=== PATIENT | female | born 1970 | race Caucasian/White ===

== ENCOUNTER → 2016-06-30 | Outpatient (CLI) | payer OTHER ==
--- NOTE | 2016-06-30 15:51 | DIAGNOSTIC IMAGING REPORT ---
CHEST 2 VIEWS ROUTINE HISTORY: HX OF BREAST CANCER, COUGH COMPARISON: None. FINDINGS: The lungs are hyperexpanded. There is mild diffuse interstitial thickening. Surgical clips within the right axilla. No focal lung consolidations to suggest pneumonia. No evidence for pulmonary edema. The heart is normal in size. Right basilar linear density favor subsegmental atelectasis. No pneumothorax. No pleural effusions. IMPRESSION: 1. No focal lung consolidations to suggest pneumonia. 2. Hyperexpanded lungs. 3. Mild diffuse interstitial thickening which may be chronic. Electronically signed by: Santana Brody M.D. 06/30/2016 3:50 PM Dictated Date/Time: 06/30/2016 3:48 PM
== END | disposition home or self-care (01) ==
LOC: C.RAD 15:18
PROVIDERS: ATTEND Internal Medicine Hematology & Oncology
DX: Z85.3 Personal history of malignant neoplasm of breast (principal); J98.4 Other disorders of lung

== ENCOUNTER → 2017-09-13 | Outpatient (CLI) | payer OTHER ==
[2017-09-13 16:01] LABS: BASO % 0.5 %; BASO ABS # 0.03 K/uL (0-0.2); EOS % 0.9 %; EOS ABS # 0.06 K/uL (0-0.5); HEMATOCRIT 44.9 % (37-47); HEMOGLOBIN 15.9 g/dL (12.0-16.0); IG# 0.01 K/uL (0.00-0.02); LYMPH % 31.6 %; MEAN CELL VOLUME 85.2 fL (80-100); MEAN CORPUSCULAR HEMOGLOBIN 30.2 pg (25-34); MONO % 7.1 %; MONO ABS # 0.47 K/uL (0.11-0.59); NEUT % 59.7 %; NEUT ABS # 3.97 K/uL (1.4-6.5); PLATELET COUNT 302 K/uL (130-400); RED CELL DISTRIBUTION WIDTH CV 14.1 % (11.5-14.5); RED CELL DISTRIBUTION WIDTH SD 43.9 fL (36.4-46.3); WHITE BLOOD COUNT 6.64 K/uL (4.8-10.8)
[2017-09-13 16:05] LABS: MEAN CORPUSCULAR HGB CONC 35.4 g/dl (32-36)
[2017-09-13 16:15] LABS: ALBUMIN 3.3 gm/dl (3.4-5.0); ALKALINE PHOSPHATASE 79 U/L (45-117); ALT/SGPT 16 U/L (12-78); AST/SGOT 16 U/L (15-37); BLOOD UREA NITROGEN 5 mg/dl (7-18); CALCIUM 8.6 mg/dl (8.5-10.1); CARBON DIOXIDE 27 mmol/L (21-32); CREATININE 0.65 mg/dl (0.60-1.20); GLUCOSE 80 mg/dl (70-99); POTASSIUM 3.2 mmol/L (3.5-5.1); SODIUM 138 mmol/L (136-145); TOTAL PROTEIN 7.2 gm/dl (6.4-8.2)
== END | disposition home or self-care (01) ==
LOC: C.LAB 14:08
PROVIDERS: ATTEND Internal Medicine Hematology & Oncology
DX: Z85.3 Personal history of malignant neoplasm of breast (principal)

== ENCOUNTER 2023-07-06 12:40 | Observation (INO) ==
[2023-07-06 13:31] LABS: Basophils # (auto) 0.04 K/uL (0.00-0.20); Basophils % (auto) 0.4 %; Eosinophils # (auto) 0.09 K/uL (0.00-0.50); Hemoglobin 9.6 g/dl (12.0-16.0); Immature Granulocytes # (auto) 0.04 K/uL (0.01-0.20); Immature Granulocytes % (auto) 0.4 %; Lymphocytes # (auto) 1.06 K/uL (1.20-3.40); Lymphocytes % (auto) 11.6 %; Mean Corpuscular Hemoglobin 24.7 pg (25.0-34.0); Mean Corpuscular Volume 79.9 fL (80.0-100.0); Mean Platelet Volume 9.1 fL (9.4-12.4); Monocytes # (auto) 1.06 K/uL (0.11-0.59); Monocytes % (auto) 11.6 %; Neutrophils # (auto) 6.88 K/uL (1.40-6.50); Platelet Count 372 K/uL (130-400); RDW Standard Deviation 61.9 fL (36.4-46.3); Red Blood Count 3.88 M/uL (4.20-5.40); White Blood Count 9.17 K/ul (4.8-10.8)
[2023-07-06 13:53] LABS: Albumin Globulin Ratio 0.8 (0.9-2); Albumin Level 2.6 gm/dl (3.4-5.0); BUN Creatinine Ratio 14.3 (10-20); Bilirubin,Total 0.2 mg/dl (0.2-1.0); Calcium 8.8 mg/dl (8.6-10.3); Creatinine Clr Calc Pharmacy 82.9 ml/min; Est GFR (African American) 134.7 ml/min; Est GFR (Non-African American) 116.2 ml/min; Globulin 3.1 gm/dl (2.5-4.0); Potassium 2.9 mmol/L (3.5-5.1); Total Protein 5.7 gm/dl (6.0-8.3)
[2023-07-06 13:56] LABS: Ovalocytes 1+; Polychromasia 2+
[2023-07-06 14:04] LABS: INR 2.5 (0.9-1.1); Prothrombin Time 25.5 Seconds (9.0-12.0)
[2023-07-06 14:11] LABS: ANTI-Xa, LMWH(Low Molecular Wt > 1.50 IU/ML (< 0.10)
--- NOTE | 2023-07-06 14:17 | Emergency Department Note ---
Impression & Plan Recurrent deep vein thrombosis (DVT), Metastatic breast cancer, Hypokalemia, Hypomagnesemia ED Provider Note NAME: KAELA SAMSON AGE: 52 SEX: F : 1970 ARRIVES VIA: Walk-In INFORMANT: Patient ED PROVIDER(S): Fausto Ramos MD CHIEF COMPLAINT: Left arm pain, swelling, referred. PLAN: Disposition: Admit MEDICAL DECISION MAKING: The patient is a pleasant 52-year-old woman with a past medical history of metastatic breast cancer who presents to the emergency department via walk-in for evaluation of left arm pain and swelling which has been progressing over the past 4 days where she was seen recently at the coagulation clinic and was referred to emergency department today to have an ultrasound of her left extremity as she was already scheduled to have an outpatient [facility] with [facility]. Patient ports she does have some chest pain but this is not uncommon for her given her extensive metastatic disease. She reports some mild intermittent shortness of breath which is not significantly changed. She reports she does have abdominal pain intermittently which has been chronic since her chemo. She reports that 2 weeks ago her chemotherapy was put on hold due to lab abnormalities and is unsure of plan to restart. Patient reports she has been compliant with her Lovenox however there was concern that her levels were not therapeutic and so anti-Xa levels were being followed. Appreciate discussion regarding the patient's referral to emergency department with Dr. Wolfe. Of note, the patient did arrive to emergency department during time of high volume, acuity and prolonged emergency department waiting times. Critical pathways initiated from triage. On arrival to emergency department to triage the patient is afebrile with heart rate in the 110s and O2 saturation 89% on room air which patient reports is not uncommon for her. On my examination the patient appears clinically dry. She does have moderate swelling of the left upper arm. Distal PMS intact. She is a large left-sided chest wall cancerous mass. EKG without overt acute ischemia. CXR negative for acute cardiopulmonary process per my personal preliminary review/interpretation. WBC within normal limits. H/H similar to prior. Platelets within normal limits. Chemistry without metabolic acidosis. Potassium 2.9 with repletion initiated. Magnesium 1.6 with repletion initiated. HS troponin 10.5, within normal limits. Of note, initial anti-Xa and INR >1.5 and 2.5, respectively obtained from the patient's port likely without wasting. Appreciate recommendations from Dr. Wolfe to redraw these after wasting. Subsequent, INR 1.0 within normal limits and anti-Xa was not detectable. However the patient maintained that she was taking her Lovenox as prescribed. Left upper extremity ultrasound was obtained and demonstrates both superficial and deep venous thrombi of the left upper extremity. Findings include partially occlusive thrombus in the left subclavian, axilla, brachial and basilic veins with trace flow noted within the brachialis. CT of the chest was performed and was negative for PE. Extensive metastatic disease as described and is unchanged from CT on 06/23. Large chest wall masses with permeative destruction of the sternum and left anterior ribs and mediastinal extension is noted. Additionally seen there is bibasilar mucous plugging with left lower lobe collapse. Given progression of left upper extremity DVT IV/unfractionated heparin initiated per discussion with Dr. Wolfe. Findings reviewed with the patient and daughter at the bedside. They did agree with plan for admission for further management. Case was discussed with [facility] hospitalist who will evaluate the patient for admission. This patient was managed with the assistance of resident, Dr. Adams. I discussed the case with the resident, examined the patient, and confirm the findings and plan as documented in this note. Triage Nursing notes reviewed and agree them. Prior/external medical records reviewed Vital Signs: reviewed Differential diagnosis: DVT, musculoskeletal, infection, joint effusion, trauma, lymphedema, idiopathic, CHF, as well as other pathologies. ER treatment provided: See below. Diagnostics interpreted by me: ECG: Normal sinus rhythm, 91 bpm, no ectopy, nonspecific T wave abnormality, no overt ST elevation or depression, QTc 457, QRS 94. Cardiac Monitoring: An order for continuous cardiac monitoring was placed and demonstrated Normal sinus rhythm, 91 bpm, no ectopy. Laboratory studies: See below Imaging studies: See below Consultation(s): [facility] hospitalist HPI: The patient is a pleasant 52-year-old woman with a past medical history of metastatic breast cancer who presents to the emergency department via walk-in for evaluation of left arm pain and swelling which has been progressing over the past 4 days where she was seen recently at the coagulation clinic and was referred to emergency department today to have an ultrasound of her left extremity as she was already scheduled to have an outpatient [facility] with onc[facility]. Patient ports she does have some chest pain but this is not uncommon for her given her extensive metastatic disease. She reports some mild intermittent shortness of breath which is not significantly changed. She reports she does have abdominal pain intermittently which has been chronic since her chemo. She reports that 2 weeks ago her chemotherapy was put on hold due to lab abnormalities and is unsure of plan to restart. Patient reports she has been compliant with her Lovenox however there was concern that her levels were not therapeutic and so anti-Xa levels were being followed. Appreciate discussion regarding the patient's referral to emergency department with Dr. Wolfe. ROS: See above HPI for pertinent positives & negatives. A total of 10 systems reviewed and were otherwise negative. VITALS:See Below PHYSICAL EXAMINATION: GENERAL: Awake, alert, in no distress HENT: Normocephalic, atraumatic. Oropharynx with dry mucous membranes and otherwise unremarkable. EYES: Normal conjunctiva. Sclera non-icteric. NECK: Supple. No nuchal rigidity. FROM. No JVD. RESPIRATORY: Diminished breath sounds at left lung rahman and otherwise clear. CARDIAC: Tachycardic rate, normal rhythm. Extremities warm and well perfused. Pulses equal. ABDOMEN: Soft, non-distended. No tenderness to palpation. No rebound or guarding. No masses. MUSCULOSKELETAL: Moderate swelling of the left upper arm. Distal PMS intact. She is a large left-sided chest wall cancerous mass. LOWER EXTREMITIES: Calves are equal size bilaterally and non-tender. No edema. No discoloration. NEURO: Normal sensorium. No sensory or motor deficits noted. SKIN: No rash or jaundice noted. ED COURSE: Critical Care: I have personally spent greater than 35 minutes of critical care time in the direct management of this patient. This includes bedside care, interpretation of diagnostic studies, and testing, discussion with consultants, patient, and family members, and other required patient management activities. This 35 minutes is in excess of all separately billable procedures. Fausto Ramos MD Past Med/Surg History Medical History Recurrent deep vein thrombosis (DVT) Anticoagulated on heparin History of blood clots 10/2021- B/L lower extremities- surgical procedure to remove and started on blood thinners COPD (chronic obstructive pulmonary disease) Arthritis Malignant neoplasm of breast metastatic to bone last chemo 11/10/22- Dr Emanuel; receiving neupogen injections Anxiety disorder Surgical History Port-A-Cath in place (11/16/22) Access Port Placement Right Subclavian(Right) - Johnathan Kwan MD, FACS History of removal of Port-a-Cath x 2 History of salpingo-oophorectomy H/O mastectomy 2012 - Right History of lumpectomy of right breast 2010 History of fasciotomy bilateral four compartment 10/2021 Family History Mother Colon cancer, Onset Age: 67 Father Heart disease Myocardial infarction, Onset Age: 62 Stroke Brother Heart disease Myocardial infarction, Onset Age: 46 Brother Heart disease Myocardial infarction, Onset Age: 65 Stroke Grandmother (Paternal) Heart disease Myocardial infarction, Onset Age: 79 Grandfather (Paternal) Heart disease Myocardial infarction, Onset Age: 45 Uncle Colon cancer Social History Smoking Status: Current every day smoker Tobacco Type: Cigarettes Age Started Using Tobacco: 13; packs per day: 1; Cigarettes Per Day: > 20 per day; Second Hand Exposure: Yes (in the past); Do You Dip or Chew Tobacco: No; Hx Alcohol Use: No Hx Substance Use: Yes Prescribed Medications: Marijuana Preferred Language: Gibraltarian Communication Ability: Effective Cooler Operator Required: No Beliefs That Will Affect Care: None marital status: Current Living Situation: Family Current Living Situation Comment: Daughter, son, and daughter in law current occupational status: previously employed and disabled 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 How many Children do You have: 4 Other Information That Helps Us Care for You: No Feels Safe at Home: Yes Safety Concerns: Feels Safe At This Time Childhood Exposure to Second-Hand Smoke: Yes Diet: regular during the past year weight has: decreased > 10 lbs Assistive Devices: Glasses and Wheelchair Assistive Devices Comment: wheelchair as needed Allergies Allergies Allergy/AdvReac Type Severity Reaction Status Date / Time Penicillins Allergy Mild Rash Verified 07/06/23 14:21 Home Meds Home Medications Medication Instructions Recorded Confirmed alprazolam 0.5 mg tablet (Xanax) 0.5 mg PO BID PRN anxiety 02/12/22 07/06/23 ondansetron HCl 8 mg tablet 8 mg PO Q8H 02/12/22 07/06/23 tiotropium 2.5 mcg-olodaterol 2.5 2 puff inhalation BID 02/12/22 07/06/23 mcg/actuation mist for inhalation (Stiolto Respimat) Medical Marijuana 1 dose PO UD PRN PAIN/ANXIETY 11/11/22 07/06/23 enoxaparin 60 mg/0.6 mL 60 mg subcut Q12 07/06/23 07/06/23 subcutaneous syringe morphine 15 mg tablet,extended 15 mg PO Q12H 07/06/23 07/06/23 release morphine 30 mg tablet,extended 30 mg PO Q12H 07/06/23 07/06/23 release Previous Rx's Medication Instructions Recorded fluticasone propionate 50 1 spray intranasal DAILY rhinitis 01/14/23 mcg/actuation nasal 1 month #1 g spray,suspension oxycodone-acetaminophen 10 mg-325 1 tab PO QID PRN pain 1 month #120 06/25/23 mg tablet (Percocet) tabs Results & Data (ED) Vital Signs Vital Signs - 24 hr 07/06/23 12:45 07/06/23 15:46 07/06/23 15:50 Temperature 36.6 C Temperature Source Temporal Artery Scan Pulse Rate 118 H 92 H Pulse Rate [Apical] 88 Respiratory Rate 16 15 18 Respiratory Effort / Characteristics Non-Labored Spontaneous Respiratory Depth Normal Respiratory Pattern Blood Pressure 118/79 Blood Pressure [Left Arm] Blood Pressure Mean 92 Blood Pressure Mean [Left Arm] Pulse Oximetry 89 L 91 88 L Oxygen Delivery Method Room Air Room Air Room Air Oxygen Flow Rate Sepsis Recent Fever Within 48 Hours No Sepsis New/Unexplained Change in Mental Status No Sepsis Action Taken by Nursing No Action Required 07/06/23 16:01 07/06/23 17:00 Temperature Temperature Source Pulse Rate 91 H Pulse Rate [Apical] 89 Respiratory Rate 18 20 Respiratory Effort / Characteristics Non-Labored Respiratory Depth Normal Respiratory Pattern Regular Blood Pressure Blood Pressure [Left Arm] 91/60 L Blood Pressure Mean Blood Pressure Mean [Left Arm] 70 Pulse Oximetry 94 96 Oxygen Delivery Method Nasal Cannula Nasal Cannula Oxygen Flow Rate 2 2 Sepsis Recent Fever Within 48 Hours Sepsis New/Unexplained Change in Mental Status Sepsis Action Taken by Nursing Laboratory Data Attestation: I reviewed the patient's lab results. 07/06/23 13:12 07/06/23 13:12 Lab Results 07/06/23 07/06/23 07/06/23 Range/Units 13:12 13:40 15:45 WBC 9.17 (4.8-10.8) K/ul RBC 3.88 L (4.20-5.40) M/uL Hgb 9.6 L (12.0-16.0) g/dl Hct 31.0 L (37.0-47.0) % MCV 79.9 L (80.0-100.0) fL MCH 24.7 L (25.0-34.0) pg MCHC 31.0 L (32.0-36.0) g/dL RDW Std Deviation 61.9 H (36.4-46.3) fL RDW Coeff of Santa 22.0 H (11.5-14.5) % Plt Count 372 (130-400) K/uL MPV 9.1 L (9.4-12.4) fL Immature Gran % (Auto) 0.4 % Neut % (Auto) 75.0 % Lymph % (Auto) 11.6 % Coal % (Auto) 11.6 % Eos % (Auto) 1.0 % Baso % (Auto) 0.4 % Neut # (Auto) 6.88 H (1.40-6.50) K/uL Lymph # (Auto) 1.06 L (1.20-3.40) K/uL Coal # (Auto) 1.06 H (0.11-0.59) K/uL Eos # (Auto) 0.09 (0.00-0.50) K/uL Baso # (Auto) 0.04 (0.00-0.20) K/uL Immature Gran # (Auto) 0.04 (0.01-0.20) K/uL Polychromasia 2+ Ovalocytes 1+ PT 25.5 H 11.2 (9.0-12.0) Seconds INR 2.5 H 1.0 (0.9-1.1) APTT 22 (21-31) Seconds PTT Ratio 0.8 Heparin Anti-Xa, LM Wt > 1.50 Cancelled < 0.10 (< 0.10) IU/ML Sodium 137 (136-145) mmol/L Potassium 2.9 L (3.5-5.1) mmol/L Chloride 101 (98-107) mmol/L Carbon Dioxide 30 (21-32) mmol/L Anion Gap 6 (3-11) BUN 6 (6-23) mg/dl Creatinine 0.42 L (0.6-1.2) mg/dl Est Cr Clr Drug Dosing 82.9 ml/min Est GFR ( Amer) 134.7 ml/min Est GFR (Non-Af Amer) 116.2 ml/min BUN/Creatinine Ratio 14.3 (10-20) Glucose 105 H (70-99(Fasting)) mg/dl Calcium 8.8 (8.6-10.3) mg/dl Magnesium 1.6 L (1.7-2.4) mg/dl Total Bilirubin 0.2 (0.2-1.0) mg/dl AST 15 (13-39) U/L ALT 9 (7-52) U/L Alkaline Phosphatase 94 (34-104) U/L Troponin I High Sens (0-14) pg/ml Total Protein 5.7 L (6.0-8.3) gm/dl Albumin 2.6 L (3.4-5.0) gm/dl Globulin 3.1 (2.5-4.0) gm/dl Albumin/Globulin Ratio 0.8 L (0.9-2) /04/18 Range/Units 15:47 WBC (4.8-10.8) K/ul RBC (4.20-5.40) M/uL Hgb (12.0-16.0) g/dl Hct (37.0-47.0) % MCV (80.0-100.0) fL MCH (25.0-34.0) pg MCHC (32.0-36.0) g/dL RDW Std Deviation (36.4-46.3) fL RDW Coeff of Santa (11.5-14.5) % Plt Count (130-400) K/uL MPV (9.4-12.4) fL Immature Gran % (Auto) % Neut % (Auto) % Lymph % (Auto) % Coal % (Auto) % Eos % (Auto) % Baso % (Auto) % Neut # (Auto) (1.40-6.50) K/uL Lymph # (Auto) (1.20-3.40) K/uL Coal # (Auto) (0.11-0.59) K/uL Eos # (Auto) (0.00-0.50) K/uL Baso # (Auto) (0.00-0.20) K/uL Immature Gran # (Auto) (0.01-0.20) K/uL Polychromasia Ovalocytes PT (9.0-12.0) Seconds INR (0.9-1.1) APTT (21-31) Seconds PTT Ratio Heparin Anti-Xa, LM Wt (< 0.10) IU/ML Sodium (136-145) mmol/L Potassium (3.5-5.1) mmol/L Chloride (98-107) mmol/L Carbon Dioxide (21-32) mmol/L Anion Gap (3-11) BUN (6-23) mg/dl Creatinine (0.6-1.2) mg/dl Est Cr Clr Drug Dosing ml/min Est GFR ( Amer) ml/min Est GFR (Non-Af Amer) ml/min BUN/Creatinine Ratio (10-20) Glucose (70-99(Fasting)) mg/dl Calcium (8.6-10.3) mg/dl Magnesium (1.7-2.4) mg/dl Total Bilirubin (0.2-1.0) mg/dl AST (13-39) U/L ALT (7-52) U/L Alkaline Phosphatase (34-104) U/L Troponin I High Sens 10.5 (0-14) pg/ml Total Protein (6.0-8.3) gm/dl Albumin (3.4-5.0) gm/dl Globulin (2.5-4.0) gm/dl Albumin/Globulin Ratio (0.9-2) Administered Medications Sodium Chloride (Nss) 500 mls @ 80 mls/hr IV .Q6H15M [facility] Stop: 08/05/23 15:44 Last Admin: 07/06/23 21:50 Dose: 80 mls/hr Documented By: Infusion: 07/06/23 21:50 Dose: Infused Documented By: Admin: 07/06/23 15:43 Dose: 80 mls/hr Documented By: BRANDON Heparin Sodium/Dextrose (Heparin Sodium/Dextrose) 25,000 units in 500 mls @ 13 mls/hr IV .Q24H TATUM; Protocol Stop: 08/05/23 17:14 Last Titration: 07/07/23 01:21 Dose: 700 units/hr, 14 mls/hr Documented By: MARIANGEL Co-signed By: DASHAWN Admin: 07/06/23 17:34 Dose: 600 units/hr, 12 mls/hr Documented By: ANGELA Co-signed By: PADMNII Morphine Sulfate (Morphine Sulfate Cr 15 Mg Tabcr) 45 mg PO Q12H [facility] Stop: 07/20/23 20:59 Last Admin: 07/06/23 21:14 Dose: 45 mg Documented By: PADMINI Ondansetron HCl (Ondansetron 8mg Od Tab) 8 mg PO Q8H [facility] Stop: 08/05/23 21:59 Last Admin: 07/06/23 21:14 Dose: 8 mg Documented By: PADMINI Discontinued Medications Heparin Sodium (Porcine) (Heparin Sod (Porcine) 1000 Unit/Ml) 1 units IV NOW ONE Stop: 07/06/23 17:04 Last Admin: 07/06/23 17:35 Dose: Not Given Documented By: ANGELA Heparin Sodium (Porcine) (Heparin Sod (Porcine) 1000 Unit/Ml) 3,000 units IV NOW ONE Stop: 07/06/23 17:16 Last Admin: 07/06/23 17:34 Dose: 3,000 units Documented By: ANGELA Co-signed By: PADMINI Heparin Sodium (Porcine) (Heparin Sod (Porcine) 1000 Unit/Ml) 1,000 units IV NOW ONE Stop: 07/07/23 00:58 Last Admin: 07/07/23 01:19 Dose: 3,000 units Documented By: MARIANGEL Co-signed By: DASHAWN Heparin Sodium (Porcine) (Heparin Sod (Porcine) 1000 Unit/Ml) Confirm Administered Dose 1,000 units .ROUTE .STK-MED ONE Stop: 07/07/23 01:16 Last Admin: 07/07/23 01:24 Dose: Not Given Documented By: MARIANGEL Potassium Chloride (K Ricci / Wtr) 10 meq in 100 mls @ 100 mls/hr IV Q1H [facility] Stop: 07/06/23 17:44 Last Admin: 03/12/24 16:20 Dose: Not Given Documented By: Admin: 07/06/23 16:19 Dose: Not Given Documented By: PADMINI Magnesium Sulfate/Dextrose (Magnesium Sulfate / D5w) 1 gm in 100 mls @ 100 mls/hr IV Q1H [facility]ATUM Stop: 07/06/23 17:54 Last Admin: 07/06/23 16:20 Dose: Not Given Documented By: Admin: 07/06/23 16:19 Dose: Not Given Documented By: PADMINI Ioversol (Optiray 320 125ml) 70 ml IV ONCE ONE Stop: 07/06/23 15:22 Last Admin: 07/06/23 15:22 Dose: 70 ml Documented By: MARICRUZ Magnesium Oxide (Magnesium Oxide 400 Mg Tab) 400 mg PO ONE ONE Stop: 07/06/23 16:20 Last Admin: 07/06/23 16:29 Dose: 400 mg Documented By: PADMINI Non-Formulary Medication (Morphine) 30 mg PO Q12H TATUM Stop: 08/05/23 19:36 Last Admin: 07/06/23 21:18 Dose: Not Given Documented By: PADMINI Potassium Chloride (Potassium Chloride Crtab 20 Meq Tabcr) 40 meq PO NOW STA Stop: 07/06/23 16:18 Last Admin: 07/06/23 16:29 Dose: 40 meq Documented By: PADMINI Imaging Data Radiologist's Impression: Extremity Venous Study 07/06/23 12:51 ULTRASOUND LEFT UPPER EXTREMITY VENOUS CLINICAL HISTORY: Acute pain of the left upper extremity. COMPARISON STUDY: Chest CT 06/23/2023. TECHNIQUE: Real-time, grayscale, and color Doppler sonography of the deep veins of the left upper extremity is performed. Compression and augmentation were utilized. FINDINGS: The patient's known chest wall and left axillary masses limited study. Subcutaneous edema. Partially occlusive thrombus in the subclavian, axilla, brachial and basilic veins with trace flow noted within the brachialis. No additional deep or superficial venous thrombosis identified. IMPRESSION: 1. Limited exam secondary to subcutaneous edema and metastatic left chest wall/left axillary masses. 2. Superficial and deep venous thrombi of the left upper extremity. ACT 112: Negative or not required by law. Electronically signed by: Silver Jeffers M.D. 07/06/2023 3:24 PM Chest CTA 07/06/23 14:36 CT angio chest PE protocol CT DOSE: 235.61 mGy.cm HISTORY: 52 years-old Female with PE. Acute shortness of breath. Metastatic disease of the chest. TECHNIQUE: Multiple CTA images of the chest were obtained after the intravenous administration of 70 ml Optiray. Coronal and sagittal MIPS were obtained from the axial data set and were submitted for review. All measurements were obtained according to NASCET criteria. A dose lowering technique was utilized adhering to the principles of ALARA. COMPARISON: Duplex venous Doppler study of same day, chest CT 06/23/2023 FINDINGS: CTA: Cardiomegaly. Atherosclerosis of the thoracic aorta without aneurysm or dissection. Descending thoracic aortic tortuosity. No pulmonary emboli identified. The left upper extremity deep venous thrombi described on the same day Doppler are not visualized by CTA. CT CHEST: Prior bilateral mastectomy. There is a large permeative lesion centered in the sternum which extends into the anterior mediastinum. This encases the left common carotid artery, and nearly encases the left subclavian artery. This also approximates the innominate artery. The soft tissue component of this lesion measures approximately 9 x 6 x 6 cm as seen on image 154. A large lesion in the left upper chest wall on image 170 measures approximately 8 x 9 x 6 cm. A left supraclavicular lesion on image 205 measures approximately 3 x 2.5 cm. Numerous additional lesions are present within the left anterior chest wall. A soft tissue lesion in the left lower back is better seen on the prior study. Left axillary lymphadenopathy. Advanced emphysema with biapical pleural parenchymal scarring redemonstrated. Bibasilar mucous plugging. There is a small left pleural effusion with complete atelectasis of the left lower lobe, unchanged. Scarring/atelectasis is seen at the right lung base. There is pleural extension tumor in the left anterior upper lung which is similar to prior extending into the left anterior lower lung as well. Large soft tissue masses are seen in the left anterior chest wall/axilla as above. Redemonstrated bilateral adrenal metastases measuring up to approximately 3 cm bilaterally. The large destructive lesions of the above with soft tissue components are seen involving both the body and manubrium of the sternum. There is also permeative destruction of the left anterior second and fourth ribs which was also noted on the prior study. Anasarca. IMPRESSION: 1. Advanced pulmonary emphysema. No pulmonary emboli identified. 2. Extensive metastatic disease of the chest as described above appears generally unchanged from the 06/23/2023 study including large chest wall masses with permeative destruction of the sternum and left anterior ribs demonstrating anterior mediastinal extension. 3. Bibasilar mucous plugging with left lower lobe collapse redemonstrated. 4. Small left pleural effusion. 5. Bilateral adrenal metastasis redemonstrated. 6. The patient is cachectic with diffuse body wall edema. ACT 112: Negative or not required by law. The above report was generated using voice recognition software. It may contain grammatical, syntax or spelling errors. Electronically signed by: Silver Jeffers M.D. 07/06/2023 3:51 PM Discharge Plan Visit Data Chief Complaint: Arm Pain Stated Complaint: SWOLLEN ELBOW & HANDS, BLOODCLOTS ED Provider: Fausto Ramos ED Midlevel Provider: Shivam Adams Discharge Problem: Recurrent deep vein thrombosis (DVT), Metastatic breast cancer, Hypokalemia, Hypomagnesemia Patient Disposition: Admitted As Inpatient Discharge Instructions Interventions: ED Discharge Assessment Last Done: 07/06/23 19:37
[2023-07-06] MEDS: OPTIRAY 320 125ml IV ONE (15:22)
--- NOTE | 2023-07-06 15:26 | Ultrasound Report ---
ULTRASOUND LEFT UPPER EXTREMITY VENOUS CLINICAL HISTORY: Acute pain of the left upper extremity. COMPARISON STUDY: Chest CT 06/23/2023. TECHNIQUE: Real-time, grayscale, and color Doppler sonography of the deep veins of the left upper ext remity is performed. Compression and augmentation were utilized. FINDINGS: The patient's known chest wall and left axillary masses limited study. Subcutaneous edema. Partially occlusive thrombus in the subclavian, axilla, brachial and basilic veins with trace flow no nena within the brachialis. No additional deep or superficial venous thrombosis identified. IMPRESSION: 1. Limited exam secondary to subcutaneous edema and metastatic left chest wall/left axillary masses. 2. Superficial and deep venous thrombi of the left upper extremity. ACT 112: Negative or not required by law. Electronically signed by: Silver Jeffers M.D. 07/06/2023 3:24 PM
[2023-07-06] MEDS: SODIUM CHLORIDE 0.9% 500 ML IV SCH (15:43)
[2023-07-06 15:52] LABS: Magnesium 1.6 mg/dl (1.7-2.4)
--- NOTE | 2023-07-06 15:52 | CT Scan Report ---
CT angio chest PE protocol CT DOSE: 235.61 mGy.cm HISTORY: 52 years-old Female with PE. Acute shortness of breath. Metastatic disease of the chest. TECHNIQUE: Multiple CTA images of the chest were obtained after the intravenous administration of 70 ml Optiray. Coronal and sagittal MIPS were obtained from the axial data set and were submitted for Yattosw. All measurements were obtained according to NASCET criteria. A dose lowering technique was ut ilized adhering to the principles of ALARA. COMPARISON: Duplex venous Doppler study of same day, chest CT 06/23/2023 FINDINGS: CTA: Cardiomegaly. Atherosclerosis of the thoracic aorta without aneurysm or dissection. Descending thorac ic aortic tortuosity. No pulmonary emboli identified. The left upper extremity deep venous thrombi de scribed on the same day Doppler are not visualized by CTA. CT CHEST: Prior bilateral mastectomy. There is a large permeative lesion centered in the sternum which extends into the anterior mediastinum. This encases the left common carotid artery, and nearly encases the le ft subclavian artery. This also approximates the innominate artery. The soft tissue component of this lesion measures approximately 9 x 6 x 6 cm as seen on image 154. A large lesion in the left upper ch est wall on image 170 measures approximately 8 x 9 x 6 cm. A left supraclavicular lesion on image 205 measures approximately 3 x 2.5 cm. Numerous additional lesions are present within the left anterior chest wall. A soft tissue lesion in the left lower back is better seen on the prior study. Left axillary lymphadenopathy. Advanced emphysema with biapical pleural parenchymal scarring redemons trated. Bibasilar mucous plugging. There is a small left pleural effusion with complete atelectasis o f the left lower lobe, unchanged. Scarring/atelectasis is seen at the right lung base. There is pleur al extension tumor in the left anterior upper lung which is similar to prior extending into the left anterior lower lung as well. Large soft tissue masses are seen in the left anterior chest wall/axilla as above. Redemonstrated thiago ateral adrenal metastases measuring up to approximately 3 cm bilaterally. The large destructive lesio ns of the above with soft tissue components are seen involving both the body and manubrium of the pepper rnum. There is also permeative destruction of the left anterior second and fourth ribs which was also noted on the prior study. Anasarca. IMPRESSION: 1. Advanced pulmonary emphysema. No pulmonary emboli identified. 2. Extensive metastatic disease of the chest as described above appears generally unchanged from the 06/23/2023 study including large chest wall masses with permeative destruction of the sternum and left anterior ribs demonstrating anterior mediastinal extension. 3. Bibasilar mucous plugging with left lower lobe collapse redemonstrated. 4. Small left pleural effusion. 5. Bilateral adrenal metastasis redemonstrated. 6. The patient is cachectic with diffuse body wall edema. ACT 112: Negative or not required by law. The above report was generated using voice recognition software. It may contain grammatical, syntax o r spelling errors. Electronically signed by: Silver Jeffers M.D. 07/06/2023 3:51 PM
[2023-07-06] MEDS: MAGNESIUM SULFATE / D5W 1 GM/100 ML BAG IV SCH (16:19)
[2023-07-06] MEDS: POTASSIUM CHLORIDE / WTR 10 MEQ/100 ML PLCT IV SCH (16:19)
[2023-07-06 16:25] LABS: ANTI-Xa, LMWH(Low Molecular Wt < 0.10 IU/ML (< 0.10); Prothrombin Time 11.2 Seconds (9.0-12.0)
[2023-07-06] MEDS: MAGNESIUM OXIDE 400 MG TAB PO ONE (16:29)
[2023-07-06] MEDS: POTASSIUM CHLORIDE CRTAB 20 MEQ TABCR PO STA (16:29)
[2023-07-06] MEDS ORDERED: Heparin IV Adult Wt-Based Standard w/ INITIAL Bolus Protocol IV STA (16:48)
[2023-07-06 17:15] LABS: Partial Thromboplastin Ratio 0.8; Partial Thromboplastin Time 22 Seconds (21-31)
[2023-07-06] MEDS ORDERED: MoRPHine SULFATE 2 MG/ML CARP IV PRN (17:24)
[2023-07-06] MEDS ORDERED: ACETAMINOPHEN 325 MG TAB PO PRN (17:24)
[2023-07-06] MEDS ORDERED: POLYETHYLENE (MIRALAX) 17 GM PACK PO PRN (17:24)
[2023-07-06] MEDS ORDERED: ONDANSETRON INJ 2 MG/ML 2 ML VIAL IV PRN (17:24)
[2023-07-06] MEDS ORDERED: ALUMINUM/MAGNESIUM SUSP 30 ML UDC PO PRN (17:24)
[2023-07-06] MEDS: HEPARIN SOD (PORCINE) 1000 UNIT/ML IV ONE ×2 (17:34→17:35)
[2023-07-06] MEDS: HEPARIN SODIUM/DEXTROSE 25,000 UNITS/500 ML BAG IV SCH (17:34)
--- NOTE | 2023-07-06 18:53 | History & Physical Report ---
Date of Service July 06, 2023 Assessment & Plan (1) Recurrent deep vein thrombosis (DVT): (2) Metastatic breast cancer: (3) Wound of sternal region: (4) COPD (chronic obstructive pulmonary disease): (5) Respiratory failure: Plan patient with metastatic breast ca, presents with recurrent left arm DVT, on Lovenox at home, started on IV Heparin, no evidence of PE IV Heparin consult hem/onc chronic pain due to cancer continue home meds anemia due to malnutrition, cancer supplements acute respiratory failure, hypoxia emphysema oxygen suppl inhalers PRN chest wound due to cancer wound care code full code History of Present Illness Chief Complaint: left arm swelling Primary Care Provider: Oz White 52 yo female with h/o metastatic breast ca, diagnosed in 2009, 2018 was found to have metastases, diagnosed with DVT in 2021, was on xarelto initially, diagnosed with left arm DVT in February 2023, on Lovenox 1.5 mg per kg once a day, presents with more swelling in left arm, diagnosed with DVT, started on IV Heparin, CTA no PE, pain is controlled with Morphine extended release 45 mg bid and Percocet, denies fever, chills, very cachectic, wants to be full code Allergies Allergy/AdvReac Type Severity Reaction Status Date / Time Penicillins Allergy Mild Rash Verified 07/06/23 14:21 Home Medications Medication Instructions Recorded Confirmed Type alprazolam 0.5 mg tablet (Xanax) 0.5 mg PO BID PRN anxiety 02/12/22 07/06/23 History ondansetron HCl 8 mg tablet 8 mg PO Q8H 02/12/22 07/06/23 History tiotropium 2.5 mcg-olodaterol 2.5 2 puff inhalation BID 02/12/22 07/06/23 History mcg/actuation mist for inhalation (Stiolto Respimat) Medical Marijuana 1 dose PO UD PRN PAIN/ANXIETY 11/11/22 07/06/23 History fluticasone propionate 50 1 spray intranasal DAILY rhinitis 01/14/23 07/06/23 Rx mcg/actuation nasal 1 month #1 g spray,suspension oxycodone-acetaminophen 10 mg-325 1 tab PO QID PRN pain 1 month #120 06/25/23 07/06/23 Rx mg tablet (Percocet) tabs enoxaparin 60 mg/0.6 mL 60 mg subcut Q12 07/06/23 07/06/23 History subcutaneous syringe morphine 15 mg tablet,extended 15 mg PO Q12H 07/06/23 07/06/23 History release morphine 30 mg tablet,extended 30 mg PO Q12H 07/06/23 07/06/23 History release Past Med/Surg History Medical History (Updated 07/06/23 @ 18:49 by Rachel Uribe MD) Recurrent deep vein thrombosis (DVT) Anticoagulated on heparin History of blood clots 10/2021- B/L lower extremities- surgical procedure to remove and started on bl ood thinners COPD (chronic obstructive pulmonary disease) Arthritis Malignant neoplasm of breast metastatic to bone last chemo 11/10/22- Dr Emanuel; receiving neupogen injections Anxiety disorder Surgical History Port-A-Cath in place (11/16/22) Access Port Placement Right Subclavian(Right) - Johnathan Kwan MD, FACS History of removal of Port-a-Cath x 2 History of salpingo-oophorectomy H/O mastectomy 2012 - Right History of lumpectomy of right breast 2009 History of fasciotomy bilateral four compartment 10/2021 Family History Mother Colon cancer, Onset Age: 67 Father Heart disease Myocardial infarction, Onset Age: 62 Stroke Brother Heart disease Myocardial infarction, Onset Age: 46 Brother Heart disease Myocardial infarction, Onset Age: 65 Stroke Grandmother (Paternal) Heart disease Myocardial infarction, Onset Age: 79 Grandfather (Paternal) Heart disease Myocardial infarction, Onset Age: 45 Uncle Colon cancer Social History Smoking Status: Current every day smoker Tobacco Type: Cigarettes Age Started Using Tobacco: 13; packs per day: 1; Cigarettes Per Day: > 20 per day; Second Hand Exposure: Yes (in the past); Do You Dip or Chew Tobacco: No; Hx Alcohol Use: No Hx Substance Use: Yes Prescribed Medications: Marijuana Preferred Language: Georgian Communication Ability: Effective Manager Utility Required: No Beliefs That Will Affect Care: None marital status: Current Living Situation: Family current occupational status: previously employed and disabled current occupation: [employer] How many Children do You have: 4 Feels Safe at Home: Yes Childhood Exposure to Second-Hand Smoke: Yes Diet: regular during the past year weight has: decreased > 10 lbs Assistive Devices: Glasses Review of Systems Review of Systems: All systems reviewed & are unremarkable except as noted in HPI & below Physical Exam Physical Exam: head atraumatic neck supple chest left chest eroding mass, port right chest lungs decreased breath sounds b/l heart s1s2 regular abdomen soft, NT, ND, BS present extremities no edema Results & Data Results & Data Vital Signs (Past 12 Hours) Vital Signs Temp Pulse Pulse Resp BP BP Pulse Ox 07/06/23 17:36 89 20 96 07/06/23 17:00 89 20 91/60 L 96 07/06/23 16:01 91 H 18 94 07/06/23 15:50 92 H 18 88 L 07/06/23 15:46 88 15 91 07/06/23 12:45 36.6 C 118 H 16 118/79 89 L O2 Del Method O2 Flow Rate 07/06/23 17:36 Nasal Cannula 2 07/06/23 17:00 Nasal Cannula 2 07/06/23 16:01 Nasal Cannula 2 07/06/23 15:50 Room Air 07/06/23 15:46 Room Air 07/06/23 12:45 Room Air Laboratory Results Abnormal lab results 07/06/23 Range/Units 13:12 RBC 3.88 L (4.20-5.40) M/uL Hgb 9.6 L (12.0-16.0) g/dl Hct 31.0 L (37.0-47.0) % MCV 79.9 L (80.0-100.0) fL MCH 24.7 L (25.0-34.0) pg MCHC 31.0 L (32.0-36.0) g/dL RDW Std Deviation 61.9 H (36.4-46.3) fL RDW Coeff of [place] 22.0 H (11.5-14.5) % MPV 9.1 L (9.4-12.4) fL Neut # (Auto) 6.88 H (1.40-6.50) K/uL Lymph # (Auto) 1.06 L (1.20-3.40) K/uL Winn # (Auto) 1.06 H (0.11-0.59) K/uL PT 25.5 H (9.0-12.0) Seconds INR 2.5 H (0.9-1.1) Potassium 2.9 L (3.5-5.1) mmol/L Creatinine 0.42 L (0.6-1.2) mg/dl Glucose 105 H (70-99(Fasting)) mg/dl Magnesium 1.6 L (1.7-2.4) mg/dl Total Protein 5.7 L (6.0-8.3) gm/dl Albumin 2.6 L (3.4-5.0) gm/dl Albumin/Globulin Ratio 0.8 L (0.9-2) Medications Administered Extremity Venous Study 07/06/23 12:51 ULTRASOUND LEFT UPPER EXTREMITY VENOUS CLINICAL HISTORY: Acute pain of the left upper extremity. COMPARISON STUDY: Chest CT 06/23/2023. TECHNIQUE: Real-time, grayscale, and color Doppler sonography of the deep veins of the left upper extremity is performed. Compression and augmentation were utilized. FINDINGS: The patient's known chest wall and left axillary masses limited study. Subcutaneous edema. Partially occlusive thrombus in the subclavian, axilla, brachial and basilic veins with trace flow noted within the brachialis. No additional deep or superficial venous thrombosis identified. IMPRESSION: 1. Limited exam secondary to subcutaneous edema and metastatic left chest wall/left axillary masses. 2. Superficial and deep venous thrombi of the left upper extremity. ACT 112: Negative or not required by law. Electronically signed by: Silver Jeffers M.D. 07/06/2023 3:24 PM Chest CTA 07/06/23 14:36 CT angio chest PE protocol CT DOSE: 235.61 mGy.cm HISTORY: 52 years-old Female with PE. Acute shortness of breath. Metastatic disease of the chest. TECHNIQUE: Multiple CTA images of the chest were obtained after the intravenous administration of 70 ml Optiray. Coronal and sagittal MIPS were obtained from the axial data set and were submitted for review. All measurements were obtained according to NASCET criteria. A dose lowering technique was utilized adhering to the principles of ALARA. COMPARISON: Duplex venous Doppler study of same day, chest CT 06/23/2023 FINDINGS: CTA: Cardiomegaly. Atherosclerosis of the thoracic aorta without aneurysm or dissection. Descending thoracic aortic tortuosity. No pulmonary emboli identified. The left upper extremity deep venous thrombi described on the same day Doppler are not visualized by CTA. CT CHEST: Prior bilateral mastectomy. There is a large permeative lesion centered in the sternum which extends into the anterior mediastinum. This encases the left common carotid artery, and nearly encases the left subclavian artery. This also approximates the innominate artery. The soft tissue component of this lesion measures approximately 9 x 6 x 6 cm as seen on image 154. A large lesion in the left upper chest wall on image 170 measures approximately 8 x 9 x 6 cm. A left supraclavicular lesion on image 205 measures approximately 3 x 2.5 cm. Numerous additional lesions are present within the left anterior chest wall. A soft tissue lesion in the left lower back is better seen on the prior study. Left axillary lymphadenopathy. Advanced emphysema with biapical pleural parenchymal scarring redemonstrated. Bibasilar mucous plugging. There is a small left pleural effusion with complete atelectasis of the left lower lobe, unchanged. Scarring/atelectasis is seen at the right lung base. There is pleural extension tumor in the left anterior upper lung which is similar to prior exten ding into the left anterior lower lung as well. Large soft tissue masses are seen in the left anterior chest wall/axilla as above. Redemonstrated bilateral adrenal metastases measuring up to approximately 3 cm bilaterally. The large destructive lesions of the above with soft tissue components are seen involving both the body and manubrium of the sternum. There is also permeative destruction of the left anterior second and fourth ribs which was also noted on the prior study. Anasarca. IMPRESSION: 1. Advanced pulmonary emphysema. No pulmonary emboli identified. 2. Extensive metastatic disease of the chest as described above appears generally unchanged from the 06/23/2023 study including large chest wall masses with permeative destruction of the sternum and left anterior ribs demonstrating anterior mediastinal extension. 3. Bibasilar mucous plugging with left lower lobe collapse redemonstrated. 4. Small left pleural effusion. 5. Bilateral adrenal metastasis redemonstrated. 6. The patient is cachectic with diffuse body wall edema. ACT 112: Negative or not required by law. The above report was generated using voice recognition software. It may contain grammatical, syntax or spelling errors. Electronically signed by: Silver Jeffers M.D. 07/06/2023 3:51 PM Code Status & VTE Plan VTE Prophylaxis Plan VTE Prophylaxis will be ordered: Yes PG Care Time/CCT Total # of Minutes Spent Total Time Spent with Patient: Total time spent is greater than 50% in coordination of care (as documented) at patient's floor/unit and/or counseling patient: Coding Level of Care Code 18049 INT INP/OBS CARE MIN Diagnoses Recurrent deep vein thrombosis (DVT) I82.409 Metastatic breast cancer C50.919 Wound of sternal region S21.109A COPD (chronic obstructive pulmonary disease) J44.9 Respiratory failure J96.90
[2023-07-06] MEDS ORDERED: ALPRAZolam 0.5 MG TABLET PO PRN (19:37)
[2023-07-06] MEDS ORDERED: oxyCODONE/ACETAMINOPHEN 10-325 TAB PO PRN (19:37)
[2023-07-06] MEDS: ONDANSETRON 8MG OD TAB PO SCH (21:14)
[2023-07-06] MEDS: MoRPHine SULFATE CR 15 MG TABCR PO SCH (21:14)
[2023-07-06] MEDS: NON-FORMULARY MEDICATION (Morphine 30 mg tablet extended release) PO SCH (21:18)
[2023-07-07 00:04] LABS: ANTI-Xa, UFH(UnfractionatedHep 0.13 IU/ml (0.3-0.7)
[2023-07-07] MEDS: HEPARIN SOD (PORCINE) 1000 UNIT/ML IV ONE (01:19)
[2023-07-07] MEDS: HEPARIN SOD (PORCINE) 1000 UNIT/ML ONE (01:24)
--- NOTE | 2023-07-07 06:13 | Electrocardiogram Report ---
Test Reason : Blood Pressure : / mmHG Vent. Rate : 091 BPM Atrial Rate : 091 BPM P-R Int : 156 ms QRS Dur : 094 ms QT Int : 372 ms P-R-T Axes : 028 014 011 degrees QTc Int : 457 ms Normal sinus rhythm Nonspecific T wave abnormality Abnormal ECG When compared with ECG of 12-NOV-2022 15:06, Questionable change in QRS axis Nonspecific T wave abnormality now evident in Inferior leads Nonspecific T wave abnormality, worse in Anterior leads Confirmed by Jt Ross ([id number]) on 07/07/2023 6:12:42 AM Referred By: REFERRED SELF Confirmed By:Jt Ross
[2023-07-07] MEDS: UMECLIDINIUM/VILANTEROL 62.5/25MCG 7 PUFFS/INHALER INH SCH (08:04)
[2023-07-07] MEDS: FLUTICASONE PROPIONATE NA SPR 16 GM BTL SCH (08:04)
[2023-07-07 08:32] LABS: ANTI-Xa, UFH(UnfractionatedHep 0.32 IU/ml (0.3-0.7)
--- NOTE | 2023-07-07 11:53 | Oncology Consultation ---
Date of Consultation July 07, 2023 History of Present Illness Attending Physician: Rachel Uribe MD Allergies Allergy/AdvReac Type Severity Reaction Status Date / Time Penicillins Allergy Mild Rash Verified 07/06/23 14:21 Home Medications Medication Instructions Recorded Confirmed Type alprazolam 0.5 mg tablet (Xanax) 0.5 mg PO BID PRN anxiety 02/12/22 07/06/23 History ondansetron HCl 8 mg tablet 8 mg PO Q8H 02/12/22 07/06/23 History tiotropium 2.5 mcg-olodaterol 2.5 2 puff inhalation BID 02/12/22 07/06/23 History mcg/actuation mist for inhalation (Stiolto Respimat) Medical Marijuana 1 dose PO UD PRN PAIN/ANXIETY 11/11/22 07/06/23 History fluticasone propionate 50 1 spray intranasal DAILY rhinitis 01/14/23 07/06/23 Rx mcg/actuation nasal 1 month #1 g spray,suspension oxycodone-acetaminophen 10 mg-325 1 tab PO QID PRN pain 1 month #120 06/25/23 07/06/23 Rx mg tablet (Percocet) tabs enoxaparin 60 mg/0.6 mL 60 mg subcut Q12 07/06/23 07/06/23 History subcutaneous syringe morphine 15 mg tablet,extended 15 mg PO Q12H 07/06/23 07/06/23 History release morphine 30 mg tablet,extended 30 mg PO Q12H 07/06/23 07/06/23 History release Patient History Medical History Recurrent deep vein thrombosis (DVT) Anticoagulated on heparin History of blood clots 10/2021- B/L lower extremities- surgical procedure to remove and started on blood thinners COPD (chronic obstructive pulmonary disease) Arthritis Malignant neoplasm of breast metastatic to bone last chemo 11/10/22- Dr Emanuel; receiving neupogen injections Anxiety disorder Surgical History Port-A-Cath in place (11/16/22) Access Port Placement Right Subclavian(Right) - Johnathan Kwan MD, FACS History of removal of Port-a-Cath x 2 History of salpingo-oophorectomy H/O mastectomy 2012 - Right History of lumpectomy of right breast 2010 History of fasciotomy bilateral four compartment 10/2021 Family History Mother Colon cancer, Onset Age: 67 Father Heart disease Myocardial infarction, Onset Age: 62 Stroke Brother Heart disease Myocardial infarction, Onset Age: 46 Brother Heart disease Myocardial infarction, Onset Age: 65 Stroke Grandmother (Paternal) Heart disease Myocardial infarction, Onset Age: 79 Grandfather (Paternal) Heart disease Myocardial infarction, Onset Age: 45 Uncle Colon cancer Social History Smoking Status: Current every day smoker Tobacco Type: Cigarettes Age Started Using Tobacco: 13; packs per day: 1; Cigarettes Per Day: > 20 per day; Second Hand Exposure: Yes (in the past); Do You Dip or Chew Tobacco: No; Hx Alcohol Use: No Hx Substance Use: Yes Prescribed Medications: Marijuana Preferred Language: Montenegrin Communication Ability: Effective Arabic Translator Required: No Beliefs That Will Affect Care: None marital status: Current Living Situation: Family Current Living Situation Comment: Daughter, son, and daughter in law current occupational status: previously employed and disabled current occupation: [employer] How many Children do You have: 4 Other Information That Helps Us Care for You: No Feels Safe at Home: Yes Safety Concerns: Feels Safe At This Time Childhood Exposure to Second-Hand Smoke: Yes Diet: regular during the past year weight has: decreased > 10 lbs Assistive Devices: Glasses and Wheelchair Assistive Devices Comment: wheelchair as needed Results & Data Vital Signs (Past 12 Hours) Vital Signs Pulse Pulse Resp BP Pulse Ox O2 Del Method O2 Flow Rate 07/07/23 10:21 90 20 129/87 94 Nasal Cannula 2 07/07/23 07:42 85 07/07/23 05:06 Nasal Cannula 2 07/07/23 05:03 74 17 88/52 L 90 Nasal Cannula 2 07/07/23 03:56 84 07/07/23 00:32 96 H 15 97/77 L 95 Nasal Cannula 2 07/07/23 00:30 89 19 97/77 L 96 Nasal Cannula 2
[2023-07-07] MEDS ORDERED: ENOXAPARIN 1 MG/KG SQ SCH (12:15)
[2023-07-07] MEDS: ENOXAPARIN INJ 30 MG/0.3 ML SYR SQ SCH (12:42)
[2023-07-07] MEDS ORDERED: POTASSIUM CHLORIDE CRTAB 20 MEQ TABCR PO SCH (14:00)
--- NOTE | 2023-07-07 15:28 | Discharge Summary ---
Date of Service July 07, 2023 Admission HPI Per Admitting Provider 52 yo female with h/o metastatic breast ca, diagnosed in 2018 was found to have metastases, diagnosed with DVT in 2021, was on xarelto initially, diagnosed with left arm DVT in February 2023, on Lovenox 1.5 mg per kg once a day, presents with more swelling in left arm, diagnosed with DVT, started on IV Heparin, CTA no PE, pain is controlled with Morphine extended release 45 mg bid and Percocet, denies fever, chills, very cachectic, wants to be full code Principal Diagnosis left arm DVT, hypokalemia, hypomagnesemia Discharge Exam head atraumatic neck supple chest left chest eroding mass, port right chest lungs decreased breath sounds b/l heart s1s2 regular abdomen soft, NT, ND, BS present extremities no edema Discharge Data Allergies Allergy/AdvReac Type Severity Reaction Status Date / Time Penicillins Allergy Mild Rash Verified 07/06/23 14:21 Consultations 07/06/23 16:48 ED Decision to Admit Stat 07/06/23 18:53 Consult Hematology Stat Ordered Studies 07/06/23 12:51 US venous doppler UE LT Urgent 07/06/23 14:36 CT for pulmonary embolism PE [CT angio chest PE protocol] Stat Hospital Course (1) Recurrent deep vein thrombosis (DVT): (2) Metastatic breast cancer: (3) Wound of sternal region: (4) COPD (chronic obstructive pulmonary disease): (5) Respiratory failure: Plan patient with metastatic breast ca, presents with recurrent left arm DVT, on Lovenox at home, started on IV Heparin, no evidence of PE IV Heparin consult hem/onc chronic pain due to cancer continue home meds anemia due to malnutrition, cancer supplements acute respiratory failure, hypoxia emphysema oxygen suppl inhalers PRN chest wound due to cancer wound care hypokalemia , hypomagnesemia supplement code full code Patient diagnosed with recurrent left arm DVT, initiated on IV Heparin, transitioned to Lovenox 30 mg bid, discussed with hem/onc , she has severe hypokalemia, hypomagnesemia, was awaiting repeat blood work results, unfortunately eloped from ER. Total Time Total Time Spent Total Time Spent (In Minutes): 45 Discharge Plan Discharge Items Patient Disposition: Against Medical Advice Reason For Visit: DVT Activity: Resume your previous activity Non-emergency contact: Oncologist Follow-up/Referrals: Oz White D.O. [Primary Care Provider] - Pending Studies at Discharge: Yes Stand-Alone Forms: My [facility] [employer], Smoking Cessation Medications and DC Order Prescriptions: New enoxaparin [Lovenox] 30 mg/0.3 mL Syringe 30 mg subcut Q12H Qty: 60 0RF Continued alprazolam [Xanax] 0.5 mg tablet 0.5 mg PO BID PRN (Reason: anxiety) Stiolto Respimat 2.5-2.5 mcg/actuation mist 2 puff inhalation BID ondansetron HCl 8 mg tablet 8 mg PO Q8H fluticasone propionate 50 mcg/actuation spray,suspension 1 spray intranasal DAILY 30 Days Qty: 1 6RF Rx Instructions: administer into each nostril oxycodone-acetaminophen [Percocet] 10-325 mg tablet 1 tab PO QID PRN (Reason: pain) 30 Days Qty: 120 0RF Medical Marijuana 1 dose PO UD PRN (Reason: PAIN/ANXIETY) morphine 30 mg tablet extended release 30 mg PO Q12H Rx Instructions: TOTAL DOSE 45 MG--TAKES WITH 15 MG TAB. morphine 15 mg tablet extended release 15 mg PO Q12H enoxaparin 60 mg/0.6 mL syringe 60 mg subcut Q12 Rx Instructions: PER PT "DID NOT TAKE TODAY, 07/06/23". Admission Data Admit Date/Time: 07/06/23 17:25 Attending Provider: Rachel Uribe Admit Provider: Rachel Uribe Primary Care Provider: Oz White Other Providers: Arnoldo Encarnacion; Soham Lujan Coding Level of Care Code 61949 INP/OBS DISCH >30 MIN Diagnoses Recurrent deep vein thrombosis (DVT) I82.409 Metastatic breast cancer C50.919 Wound of sternal region S21.109A COPD (chronic obstructive pulmonary disease) J44.9 Respiratory failure J96.90
== END 2023-07-07 15:10 | disposition left against medical advice (07) ==
LOC: SUATTDRO → ED 12:40 → INTOOBSV 17:25 → EDINP 17:25 → 2S 07-07 10:52